=== PATIENT | female | born 1955 | race Caucasian/White ===

== ENCOUNTER 2021-12-29 10:37 | Day surgery (SDC) | payer OTHER ==
[~2021-12-29] VITALS: Ht 162.6 cm; Wt 78.5 kg
[~2021-12-29 10:37] MED LIST: CEFAZOLIN SOD 2 GM in D5W 50 ML IV ONE
[2021-12-29] MEDS ORDERED: LR 1,000 ML IV.SOLN IV ONE (13:27)
[2021-12-29] MEDS ORDERED: PROPOFOL 200MG/ 20ML VIAL (DIPRIVAN) IV ONE (13:27)
[2021-12-29] MEDS ORDERED: SEVOFLURANE 15 MIN GAS INH ONE (13:27)
[2021-12-29] MEDS ORDERED: BUPIVACAINE /EPINEPHRINE/PF 0.25% 30 ML VIAL INJ ONE (13:27)
[2021-12-29] MEDS ORDERED: fentaNYL CITRATE/PF 100 MCG/2 ML AMP ONE (13:27)
[2021-12-29] MEDS ORDERED: ONDANSETRON HCL 4 MG/2 ML VIAL ONE (13:27)
[2021-12-29] MEDS ORDERED: NS IRRIG SOLN 1000 ML IR ONE (13:27)
[2021-12-29] MEDS ORDERED: SUCCINYLCHOLINE CHLORIDE 20 MG/ML(QUELICIN) ONE (13:27)
[2021-12-29] MEDS ORDERED: KETOROLAC TROMETHAMINE 30 MG VIAL ONE (13:27)
[2021-12-29] MEDS ORDERED: LABETALOL 100 MG/ 20ML VIAL IVP PRN (14:45)
[2021-12-29] MEDS ORDERED: HYDROmorphone 1 MG/ML INJ. CARTRIDGE IVP PRN (14:45)
[2021-12-29] MEDS ORDERED: hydrALAZINE HCL 20 MG/ML VIAL IVP PRN (14:45)
[2021-12-29] MEDS ORDERED: ONDANSETRON HCL 4 MG/2 ML VIAL IVP PRN (14:45)
[2021-12-29] MEDS ORDERED: LR 1,000 ML IV SCH (14:45)
[2021-12-29 15:35] VITALS: BP_SYST 150
== END 2021-12-29 16:10 | disposition home or self-care (01) ==
LOC: SDS 10:37 → SMU 10:38 → SDS 16:10
PROVIDERS: ATTEND Surgery
DX: L72.3 Sebaceous cyst (principal); L82.1 Other seborrheic keratosis; E78.5 Hyperlipidemia, unspecified; R73.03 Prediabetes; Z96.643 Presence of artificial hip joint, bilateral
CPT/HCPCS: 11402; 36415; 88304; J0330; J0690; J1885; J2405; J2704; J3010; J3490; J7060; J7120; U0003; 88305